=== PATIENT | female | born 1995 | race Caucasian/White ===

== ENCOUNTER 2018-06-20 22:17 | Emergency (ER) | payer MEDICAID ==
[2018-06-21] MEDS ORDERED: Bupivacaine 0.5% W/EPI SDV* 10 ML VIAL INJ ONE (00:05)
[2018-06-21] MEDS ORDERED: Lidocaine 2% EPI 1:200000 MPF* 10 ML VIAL INJ ONE (00:05)
--- NOTE | 2018-06-21 00:07 | ED ---
Laceration/Wound HPI - HPI Summary HPI Summary: A 23 y/o female presents to [facility] with a chief complaint of a left thumb laceration today. She reports that she cut her thumb with a scalpel while cutting open a softball. She rates her pain as a 4/10 in severity. She reports that she is UTD on her tetanus shot. - History of Current Complaint Stated Complaint: LEFT HAND THUMB LAC PER PT Time Seen by Provider: 06/21/18 00:00 Hx Obtained From: Patient Mechanism of Injury: Other - cut with a scalpel Onset/Duration: Sudden Onset Aggravating: Nothing Alleviating: Nothing Timing: Constant Onset Severity: Moderate Current Severity: Moderate Pain Intensity: 4 Pain Scale Used: 0-10 Numeric Associated Signs & Symptoms: Negative - fever - Allergy/Home Medications Allergies/Adverse Reactions: Allergies Allergy/AdvReac Type Severity Reaction Status Date / Time No Known Allergies Allergy Verified 06/20/18 22:22 PMH/Surg Hx/FS Hx/Imm Hx Endocrine/Hematology History: Denies: Hx Diabetes Cardiovascular History: Denies: Hx Hypertension - Surgical History Surgery Procedure, Year, and Place: breast biopsy Jan 2018 Infectious Disease History: No Infectious Disease History: Denies: Traveled Outside the [place] in Last 30 Days - Family History Known Family History: Positive: Hypertension, Diabetes - Social History Alcohol Use: Occasionally Hx Substance Use: No Hx Tobacco Use: No Review of Systems Negative: Fever Positive: Other - positive: left thumb laceration All Other Systems Reviewed And Are Negative: Yes Physical Exam - Summary Physical Exam Summary: Appearance: Well-appearing, Well-nourished, lying in bed comfortably Skin: Warm, dry, no obvious rash Eyes: sclera anicteric, no conjunctival pallor ENT: mucous membranes moist, pharynx appears normal Neck: Supple, nontender Respiratory: Clear to auscultation, no signs of respiratory distress Cardiovascular: Normal S1, S2. No murmurs. Normal distal pulses in tibial and radial bilaterally. Abdomen: Soft, nontender, normal active bowel sounds present Musculoskeletal: Normal, Strength/ROM Intact, 1.5 cm laceration dorsal surface of first proximal phalanx on the left oriented transversal to the finger Neurological: A&Ox3, awake and alert, mentation is normal, speech is fluent and appropriate Psychiatric: affect is normal, does not appear anxious or depressed Triage Information Reviewed: Yes Vital Signs On Initial Exam: Initial Vitals Temp Pulse Resp BP Pulse Ox 97.8 F 54 16 142/83 94 06/20/18 22:19 06/20/18 22:19 06/20/18 22:19 06/20/18 22:19 06/20/18 22:19 Vital Signs Reviewed: Yes Procedures - Laceration/Wound Repair 1 Location: Other - left thumb Anesthesia: Local, 2.0%, Lido, Epi Suture Type: Nylon Number of Sutures: 3 - 4-0 Nylon sutures Diagnostics - Vital Signs Vital Signs Temp Pulse Resp BP Pulse Ox 06/20/18 22:19 97.8 F 54 16 142/83 94 - Laboratory Lab Statement: Any lab studies that have been ordered have been reviewed, and results considered in the medical decision making process. Laceration Repair Course/Dx - Course Course Of Treatment: A 23 y/o female presents to [facility] with a chief complaint of a left thumb laceration today. She reports that she cut her thumb with a scalpel while cutting open a softball. The physical exam revealed a 1.5 cm laceration dorsal surface of first proximal phalanx on the left oriented transversal to the finger. 3 x 4-0 nylon sutures were placed with 2% lidocaine with epi as local anesthetic. The patient will be discharged and follow up with her PCP. The patient is agreeable with this plan. - Clinical Impression Provider Diagnoses: Laceration of left thumb Discharge - Sign-Out/Discharge Documenting (check all that apply): Patient Departure - DC Patient Received Moderate/Deep Sedation with Procedure: No - Discharge Plan Condition: Good Disposition: HOME Patient Education Materials: Care For Your Stitches (ED), Laceration (ED) Referrals: [facility] [Outside] Additional Instructions: The stitches need to be removed in about a week - Billing Disposition and Condition Condition: GOOD Disposition: Home - Attestation Statements Document Initiated by Scribe: Yes Documenting Scribe: Matthew Bright Provider For Whom Anders is Documenting (Include Credential): Viral Hall MD Scribe Attestation: Matthew Clemente, scribed for Viral Hall MD on 06/24/18 at 0541. Scribe Documentation Reviewed: Yes Provider Attestation: The documentation as recorded by the Matthew vazquez accurately reflects the service I personally performed and the decisions made by me, Viral Hall MD Status of Scribe Document: Viewed
[2018-06-21] MEDS ORDERED: Lidocaine 2% EPI 1:200000 MPF*10-20 ML VIAL INJ ONE (00:15)
[2018-06-21] MEDS ORDERED: Lidocaine 2% EPI 1:200000 MPF*10-20 ML VIAL ONE ×2 (00:16)
[2018-06-21] MEDS ORDERED: Bupivacaine 0.5% W/EPI SDV* 30 ML VIAL INJ ONE ×2 (00:30)
[2018-06-21 01:49] VITALS: BP 115/63
== END 2018-06-21 01:17 | disposition home or self-care (01) ==
LOC: ED 22:17
DX: S61.012A Laceration without foreign body of left thumb without damage to nail, initial encounter (principal); W26.8XXA Contact with other sharp object(s), not elsewhere classified, initial encounter; Y92.9 Unspecified place or not applicable
CPT/HCPCS: 12001; 99281